=== PATIENT | female | born 2000 | race Asian ===

== ENCOUNTER 2021-12-08 07:27 | Outpatient (CLI) | payer BC, SELFPAY | END 2021-12-08 07:28 | disposition home or self-care (01) | LOC: OP CLINIC 07:28 | PROVIDERS: PCP Emergency Medicine; Referring Provider Emergency Medicine; Visit Provider Surgery | DX: R19.8 Other specified symptoms and signs involving the digestive system and abdomen (principal) | CPT/HCPCS: 43239; 88305; J2250; J3010 ==

== ENCOUNTER 2025-04-22 10:36 | Outpatient (CLI) | payer OTHER, SELFPAY ==
--- NOTE | 2025-04-22 11:52 | P.ANES_ITS ---
Anesthesia Charges Start Date/Time Anesthesia Start Date: 04/22/25 Anesthesia Start Time: 11:28 Stop Date/Time Anesthesia Stop Date: 04/22/25 Anesthesia Stop Time: 11:58 Coding CPT Codes CPT Codes: ANES UPR GI NDSC PX NOS - 28172 ([id number]) P2 - PATIENT W/MILD SYST DISEASE, QK - ACCOUNT MANAGER EDUCATION 2-4 CNCRNT ANES PROC, QX - FIELD MARKETING ASSOCIATE SVC W/ MD MED DIRECTION
--- NOTE | 2025-04-22 11:52 | W.ANESCHARGE ---
Anesthesia Charges Start Date/Time Anesthesia Start Date: 04/22/25 Anesthesia Start Time: 11:28 Stop Date/Time Anesthesia Stop Date: 04/22/25 Anesthesia Stop Time: 11:58 Coding CPT Codes CPT Codes: ANES UPR GI NDSC PX NOS - 30000 ([id number]) P2 - PATIENT W/MILD SYST DISEASE, QK - TRANSFER SPECIALIST 2-4 CNCRNT ANES PROC, QX - DIRECTOR OF NURSING SVC W/ MD MED DIRECTION
[2025-04-22] MEDS: ALBUTEROL SULFATE 2.5 MG/3 ML VIAL.NEB NEB (12:09)
--- NOTE | 2025-04-22 12:17 | P.ANES_ITS ---
Anesthesia Charges Start Date/Time Anesthesia Start Date: 04/22/25 Anesthesia Start Time: 11:28 Stop Date/Time Anesthesia Stop Date: 04/22/25 Anesthesia Stop Time: 11:58 Coding CPT Codes CPT Codes: ANES UPR GI NDSC PX NOS - 58244 ([id number]) P2 - PATIENT W/MILD SYST DISEASE, QK - BARREL BRANDER 2-4 CNCRNT ANES PROC, QX - INSTRUCTOR [employer] SVC W/ MD MED DIRECTION
--- NOTE | 2025-04-22 12:17 | W.ANESCHARGE ---
Anesthesia Charges Start Date/Time Anesthesia Start Date: 04/22/25 Anesthesia Start Time: 11:28 Stop Date/Time Anesthesia Stop Date: 04/22/25 Anesthesia Stop Time: 11:58 Coding CPT Codes CPT Codes: ANES UPR GI NDSC PX NOS - 83857 ([id number]) P2 - PATIENT W/MILD SYST DISEASE, QK - CIRCULAR TANK COOPER 2-4 CNCRNT ANES PROC, QX - VELVET STEAMER SVC W/ MD MED DIRECTION
== END 2025-04-22 10:37 | disposition home or self-care (01) ==
LOC: OP CLINIC 10:37
PROVIDERS: PCP Physician Assistant Medical; Visit Provider Surgery
DX: R13.10 Dysphagia, unspecified (principal); K22.89 Other specified disease of esophagus
CPT/HCPCS: 00731; 43239; J2704; J3490